=== PATIENT | male | born 1950 | race Caucasian/White ===

== ENCOUNTER 2017-07-14 08:36 | Emergency (ER) | payer MEDICARE, OTHER ==
[2017-07-14 08:47] VITALS: TEMP 96; O2SAT 98
--- NOTE | 2017-07-14 09:03 | ED.PDOC ---
History of Present Illness - General Chief Complaint: Blood Pressure Problem Stated Complaint: poss elevated BP Time Seen by Provider: 07/14/17 08:55 Source: patient Exam Limitations: no limitations - History of Present Illness Initial Comments: Leonid Navarro 66 y/o male stated felt uneasy/anxious this am feeling blood pressure been elevated.Stated he is alone at home getting his internet cable installed this am.Just recently retired not doing anything at his new house that he bought in town.DENIES CHEST PAINS SYMPTOMS,DIZZINESS ,SOB.Took Valium 0.5 mg before coming here.Has history of cardiac stent and abdominal aorta aneurysm repair with tube graft. Also stated his blood pressure goes down in the afternoon. Timing/Duration: 1-3 hours Severity: mild Improving Factors: nothing Worsening Factors: nothing Associated Symptoms: denies symptoms Allergies/Adverse Reactions: Allergies NO KNOWN ALLERGY Allergy (Verified 07/14/17 08:49) Home Medications: Ambulatory Orders Atorvastatin Calcium [Lipitor] 20 mg PO DAILY 07/14/17 Carvedilol 1.56 mg PO BID 07/14/17 Clopidogrel Bisulfate [Plavix] 75 mg PO QD 07/14/17 Lisinopril 20 mg PO DAILY 07/14/17 Review of Systems - Review of Systems Constitutional: States: no symptoms reported EENTM: States: no symptoms reported Respiratory: States: no symptoms reported Cardiology: States: no symptoms reported Gastrointestinal/Abdominal: States: no symptoms reported Genitourinary: States: no symptoms reported Musculoskeletal: States: no symptoms reported Skin: States: no symptoms reported Neurological: States: see HPI, anxiety Endocrine: States: no symptoms reported All other Systems: Reviewed and Negative, No Change from Baseline Past Medical History (General) - Patient Medical History Hx Stroke: No Hx Cardiac Disorders: Yes - Stent Hx Congestive Heart Failure: No Hx Hypertension: Yes Hx Diabetes: No Hx Gastroesophageal Reflux: Yes Surgical History: other - cardiac stent ,AAA-tube graft - Vaccination History Hx Influenza Vaccination: No Hx Pneumococcal Vaccination: No - Social History Hx Tobacco Use: Yes Hx Physical Abuse: No Hx Emotional Abuse: No Family Medical History - Family History Father Family History: Unknown Living Status: Unknown Hx Family Hypertension: Yes Physical Exam - Physical Exam General Appearance: Alert, Comfortable, No apparent distress Eye Exam: bilateral normal Ears, Nose, Throat: hearing grossly normal, normal ENT inspection Neck: non-tender, full range of motion, supple, normal inspection Respiratory: chest non-tender, lungs clear, normal breath sounds, no respiratory distress Cardiovascular/Chest: normal peripheral pulses, regular rate, rhythm, no murmur Peripheral Pulses: radial,right: 2+, radial,left: 2+ Gastrointestinal/Abdominal: normal bowel sounds, non tender, soft, no organomegaly Back Exam: normal inspection, no CVA tenderness Extremity: normal range of motion, no pedal edema, no calf tenderness Neurologic: no motor/sensory deficits, alert, oriented x 3 Skin Exam: normal color, warm/dry Progress - Progress Progress: 07/14/17 09:05 Vital Signs - 8 hr 07/14/17 08:41 Temperature 96 F L Pulse Rate [ 76 Right Brachial] Respiratory 20 Rate Blood Pressure 139/94 [Right Arm] O2 Sat by Pulse 98 Oximetry - EKG/XRAY/CT EKG: Sinus, no ST T wave changes Comments: HR-79 Departure - Departure Clinical Impression: Anxiety Hypertension Qualifiers: Hypertension type: unspecified Qualified Code(s): I10 - Essential (primary) hypertension Time of Disposition: : Disposition: Discharge to Home or Self Care Departure Forms: ED Discharge - Pt. Copy, Patient Portal Self Enrollment Instructions: DI for High Blood Pressure, DI for Anxiety -- Adult Home Medications: Ambulatory Orders Atorvastatin Calcium [Lipitor] 20 mg PO DAILY 07/14/17 Carvedilol 1.56 mg PO BID 07/14/17 Clopidogrel Bisulfate [Plavix] 75 mg PO QD 07/14/17 Lisinopril 20 mg PO DAILY 07/14/17 Additional Instructions: Continue with all home medications;Return to emergency room as needed
[2017-07-14 09:27] VITALS: BP 118/84
== END 2017-07-14 09:23 | disposition home or self-care (01) ==
LOC: ER 08:36
DX: I10 Essential (primary) hypertension (principal); F41.9 Anxiety disorder, unspecified; K21.9 Gastro-esophageal reflux disease without esophagitis; Z98.61 Coronary angioplasty status; Z87.891 Personal history of nicotine dependence; Z79.02 Long term (current) use of antithrombotics/antiplatelets; Z79.899 Other long term (current) drug therapy